=== PATIENT | female | born 1985 | race Caucasian/White ===

== ENCOUNTER 2019-11-12 15:28 | Emergency (ER) | payer SELFPAY ==
[~2019-11-12] VITALS: Ht 167.6 cm; Wt 81.6 kg
[2019-11-12] MEDS ORDERED: ACETAMINOPHEN 325 MG TAB PO ONE ×2 (15:40→15:45)
[2019-11-12 19:11] VITALS: BP 120/74
[2019-11-12] MEDS ORDERED: LIDOCAINE 1% HCL (LOCAL ANESTH.) INJ 20ML MDV IJ ONE (21:30)
[2019-11-12] MEDS ORDERED: TETANUS-DIPTH-ACEL PERTUSSIS 0.5ML SYRG IM ONE (21:30)
== END 2019-11-12 22:21 | disposition home or self-care (01) ==
LOC: ER 15:28
DX: S60.413A Abrasion of left middle finger, initial encounter (principal); V86.59XA Driver of other special all-terrain or other off-road motor vehicle injured in nontraffic accident, initial encounter; Y93.89 Activity, other specified; Y99.8 Other external cause status; Y92.89 Other specified places as the place of occurrence of the external cause
CPT/HCPCS: 73130; 90471; 90715; 99283; J2001